=== PATIENT | female | born 1955 | race Caucasian/White ===

== ENCOUNTER 2016-10-05 04:44 | Inpatient (IN) | payer OTHER ==
[2016-10-05] VITALS (13 sets, daily range): BP systolic 97–148; BP diastolic 59–101
[~2016-10-05] VITALS: Ht 152.4 cm; Wt 87.2 kg
[~2016-10-05 04:44] MED LIST: ABILIFY2 MG PO; ABILIFY20 MG PO; ADULT LOW DOSE81 M1 PO; ADVAIR HFA120 INHAL1 IH; ALDACTONE25 MG PO; ALPRAZOLAM0.25 MG PO; COREG3.125 MG PO; COREG6.25 M1 PO; ENALAPRIL MALE2.5 MG PO; ENALAPRIL MALEAT5 M1 PO; FLONASE16 G1 BOTH NARES; FLOVENT DISKUS1 DIS2 IH; GLIPIZIDE5 M1 PO; GLIPIZIDE5 MG PO; GLUCOPHAGE850 MG PO; HYDROCODON-ACE1 EAC7 PO; ISOSORBIDE DINI20 MG PO; K-DUR20 MEQ PO; KLOR-CON 1010 MEQ PO; LASIX40 MG PO; LEVOFLOXACIN750 MG PO; LORATADINE10 M2 PO; METOLAZONE5 MG PO; OMEPRAZOLE40 M1 PO; PERCOCET 5/31 TABLET PO; PRAVASTATIN SOD20 MG PO; PREDNISONE10 M1 PO; PREDNISONE50 MG PO; PROAIR HFA8.5 GM IH; PROZAC40 MG PO; RELAFEN500 M1 PO; SERTRALINE HCL50 MG PO; SIMVASTATIN20 MG PO; SPIRONOLACTONE25 MG PO; [UNRECOGNIZED DRUG - OTHER]
[2016-10-05 05:17] LABS: BASE EXCESS -16.1 mEq/L (-3 to +3); BICARBONATE 12.3 mEq/L (22-26); CARBOXY HGB 3.8 % (0-5); COMMENTS - BLOOD GASES C+; DEVICE MASK VENT; FI02 50 %; METHEMOGLOBIN 0.5 % (0-1.5); MODE SPONT; PCO2 37 mm Hg (35-45); PO2 153 mm Hg (80-100); SITE RR; TOTAL RESP RATE 40 resp/min; pH 7.13 (7.35-7.45)
[2016-10-05 05:18] LABS: PEEP 5 CM/H20; PRES. SUPPORT 10 CM/H2O
[2016-10-05 05:27] LABS: CHLORIDE 109 mEq/L (99-109)
[2016-10-05 05:28] LABS: POTASSIUM 4.8 mEq/L (3.7-5.4); SODIUM 140 mEq/L (136-147)
[2016-10-05 05:31] LABS: ANION GAP 19 MEQ/L (2-14)
[2016-10-05 05:33] LABS: GFR ESTIMATE (CALCULATED) 48 mL/min/
[2016-10-05 05:34] LABS: UREA NITROGEN (BUN) 16 mg/dL (9-23)
[2016-10-05 05:40] LABS: HEMATOCRIT 44.7 % (36.0-46.0); MCH 34.6 PG (29.0-34.0); MCHC 31.5 G/DL (30.0-36.0); MCV 109.6 FL (83-99); MEAN PLAT.VOLUME 10.2 uM^3 (9.5-12.4); PLATELET COUNT 257 K/uL (156-360); RBC DIS.WIDTH-CV 13.1 % (11.8-14.6); RED BLOOD COUNT 4.08 M/uL (3.80-5.20); WHITE BLOOD COUNT 13.2 K/uL (4.1-10.2)
[2016-10-05 05:41] LABS: TROP-I INTERPRETATION NEGATIVE; TROPONIN-I 0.01 ng/mL (0.0-0.30)
[2016-10-05 05:54] LABS: GLUCOSE 471 mg/dL (70-99)
[2016-10-05 08:47] LABS: METH RESISTANT S AUREUS PCR NEGATIVE (NEGATIVE)
[2016-10-05 08:51] LABS: PROBE CHECK PASS; SPECIMEN PROCESSING CONTROL PASS
[2016-10-05 10:05] LABS: ADD MIUA? YES; BILIRUBIN NEGATIVE; BLOOD NEGATIVE; COLOR AMBER ((YELLOW)); GLUCOSE (STRIP) 150; KETONES NEGATIVE; LEUKOCYTES NEGATIVE; NITRITE NEGATIVE; PROTEIN (STRIP) 100; SPECIFIC GRAVITY 1.024 (1.000-1.030)
[2016-10-05 10:47] LABS: CASTS PRESENT /LPF
[2016-10-05 10:48] LABS: BACTERIA 2+ /HPF; EPITHELIAL CELLS 1+ /HPF; MUCUS NONE SEEN /LPF
[2016-10-05 12:22] LABS: POINT-OF-CARE METER ID UU14100415
[2016-10-05] MEDS ORDERED: K-DUR20 MEQ PO (13:33)
[2016-10-05] MEDS ORDERED: XARELTO20 MG PO (13:34)
[2016-10-05 13:42] LABS: POINT-OF-CARE METER ID UU13113731
[2016-10-05 14:33] LABS: POINT-OF-CARE METER ID UU13113731
[2016-10-05 15:33] LABS: ANION GAP 9 MEQ/L (2-14); CHLORIDE 111 MEQ/L (99-109); POTASSIUM 4.8 MEQ/L (3.7-5.4); SAMPLE HEMOLYSIS CHECK 0; SAMPLE ICTERIC CHECK 0; SAMPLE LIPEMIA CHECK 0; SODIUM 138 MEQ/L (136-147)
[2016-10-05 15:39] LABS: GFR ESTIMATE (CALCULATED) > 59 mL/min/; UREA NITROGEN (BUN) 18 mg/dL (9-23)
[2016-10-05 15:41] LABS: GLUCOSE 172 mg/dL (70-99)
[2016-10-05 15:44] LABS: TROP-I INTERPRETATION INDETERMINATE; TROPONIN-I 0.34 ng/mL (0.0-0.30)
[2016-10-05 16:36] LABS: POINT-OF-CARE METER ID UU13113731
[2016-10-05 18:41] LABS: POINT-OF-CARE METER ID UU13113731
[2016-10-05 18:44] LABS: BASE EXCESS -4.8 mEq/L (-3 to +3); CARBOXY HGB 2.2 % (0-5); PCO2 34 mm Hg (35-45)
[2016-10-05 18:45] LABS: BICARBONATE 19.7 mEq/L (22-26); COMMENTS - BLOOD GASES C+A+; DEVICE NC; O2 FLOW 1.5 L/MIN; PO2 70 mm Hg (80-100); SITE RR; pH 7.37 (7.35-7.45)
[2016-10-05 20:41] LABS: ANION GAP 9 MEQ/L (2-14); CHLORIDE 109 MEQ/L (99-109); POTASSIUM 5.2 MEQ/L (3.7-5.4); SAMPLE HEMOLYSIS CHECK 0; SAMPLE ICTERIC CHECK 0; SAMPLE LIPEMIA CHECK 0; SODIUM 136 MEQ/L (136-147)
[2016-10-05 20:47] LABS: GFR ESTIMATE (CALCULATED) > 59 mL/min/; GLUCOSE 145 mg/dL (70-99); UREA NITROGEN (BUN) 16 mg/dL (9-23)
[2016-10-05 20:52] LABS: TROP-I INTERPRETATION INDETERMINATE; TROPONIN-I 0.37 ng/mL (0.0-0.30)
[2016-10-05 22:59] LABS: POINT-OF-CARE METER ID UU13113731
[2016-10-06 02:37] LABS: POINT-OF-CARE METER ID UU13113748
[2016-10-06 05:41] LABS: POINT-OF-CARE METER ID UU13113748
[2016-10-06 08:00] VITALS: BP 123/69
[2016-10-06 09:38] LABS: ANION GAP 9 MEQ/L (2-14); CHLORIDE 104 MEQ/L (99-109); POTASSIUM 4.3 MEQ/L (3.7-5.4); SAMPLE HEMOLYSIS CHECK 0; SAMPLE ICTERIC CHECK 0; SAMPLE LIPEMIA CHECK 0; SODIUM 137 MEQ/L (136-147)
[2016-10-06 09:43] LABS: GFR ESTIMATE (CALCULATED) > 59 mL/min/; GLUCOSE 117 mg/dL (70-99); UREA NITROGEN (BUN) 12 mg/dL (9-23)
[2016-10-06 09:44] LABS: HEMATOCRIT 39.1 % (36.0-46.0); MCH 35.2 PG (29.0-34.0); MCHC 33.5 G/DL (30.0-36.0); RBC DIS.WIDTH-CV 13.2 % (11.8-14.6); RBC DIS.WIDTH-SD 51.2 % (39-53); RED BLOOD COUNT 3.72 M/uL (3.80-5.20); WHITE BLOOD COUNT 12.2 K/uL (4.1-10.2)
[2016-10-06 09:50] LABS: MCV 105.1 FL (83-99)
[2016-10-06 09:52] LABS: EOSINOPHIL (%) 0 % (0-5); IMMATURE GRANULOCYTE (%) 1.1 % (0.0-0.7); IMMATURE GRANULOCYTE COUNT 0.1 K/uL; INSTRUMENT ABS NEUTROPHIL CT 10.4 K/uL; LYMPHOCYTE COUNT 1.1 K/uL (1.0-2.8); MONOCYTE (%) 4.8 % (3-12); MONOCYTE COUNT 0.6 K/uL (0-0.8); NEUTROPHIL COUNT 10.4 K/uL (1.8-6.4); PLAT.SUFFICIENCY ADEQUATE; PLATELET COUNT UNABLE TO REPORT K/uL (156-360)
[2016-10-06 12:00] VITALS: BP 119/59
[2016-10-06 12:46] LABS: POINT-OF-CARE METER ID UU14208751
[2016-10-06 14:47] LABS: Estimated Average Glucose 126 mg/dL (70-123)
[2016-10-06 15:39] VITALS: BP 111/67
[2016-10-06 16:43] LABS: POINT-OF-CARE METER ID UU14174225
[2016-10-06 19:40] VITALS: BP 110/68
[2016-10-06 21:12] LABS: POINT-OF-CARE METER ID UU14188625
[2016-10-06 23:41] VITALS: BP 123/60
[2016-10-07] VITALS (7 sets, daily range): BP systolic 102–136; BP diastolic 64–81
[2016-10-07 06:44] LABS: HEMATOCRIT 37.3 % (36.0-46.0); MCH 35.9 PG (29.0-34.0); MCHC 34.3 G/DL (30.0-36.0); MCV 104.5 FL (83-99); MEAN PLAT.VOLUME 10.2 uM^3 (9.5-12.4); RBC DIS.WIDTH-CV 13.5 % (11.8-14.6); RBC DIS.WIDTH-SD 51.3 % (39-53); RED BLOOD COUNT 3.57 M/uL (3.80-5.20)
[2016-10-07 06:47] LABS: PLATELET COUNT 147 K/uL (156-360)
[2016-10-07 07:09] LABS: ANION GAP 8 MEQ/L (2-14); CHLORIDE 101 MEQ/L (99-109); GFR ESTIMATE (CALCULATED) > 59 mL/min/; GLUCOSE 96 mg/dL (70-99); SAMPLE HEMOLYSIS CHECK 0; SAMPLE ICTERIC CHECK 0; SAMPLE LIPEMIA CHECK 0; SODIUM 136 MEQ/L (136-147); UREA NITROGEN (BUN) 12 mg/dL (9-23)
[2016-10-07 08:29] LABS: POINT-OF-CARE METER ID UU14188625
[2016-10-07 11:56] LABS: POINT-OF-CARE METER ID UU14174225
[2016-10-07 13:53] LABS: HEMATOCRIT 42.2 % (36.0-46.0); MCH 34.6 PG (29.0-34.0); MCHC 33.6 G/DL (30.0-36.0); MCV 102.9 FL (83-99); MEAN PLAT.VOLUME 9.9 uM^3 (9.5-12.4); RBC DIS.WIDTH-CV 13.5 % (11.8-14.6); RBC DIS.WIDTH-SD 50.9 % (39-53); WHITE BLOOD COUNT 15.3 K/uL (4.1-10.2)
[2016-10-07 13:54] LABS: PLATELET COUNT 194 K/uL (156-360)
[2016-10-07 14:05] LABS: ANION GAP 9 MEQ/L (2-14); CHLORIDE 99 MEQ/L (99-109); GFR ESTIMATE (CALCULATED) > 59 mL/min/; GLUCOSE 101 mg/dL (70-99); POTASSIUM 3.9 MEQ/L (3.7-5.4); SAMPLE HEMOLYSIS CHECK 0; SAMPLE ICTERIC CHECK 0; SAMPLE LIPEMIA CHECK 0; SODIUM 135 MEQ/L (136-147); UREA NITROGEN (BUN) 12 mg/dL (9-23)
[2016-10-07 14:09] LABS: TROP-I INTERPRETATION NEGATIVE; TROPONIN-I 0.12 ng/mL (0.0-0.30)
[2016-10-07 15:01] LABS: MAGNESIUM 1.8 mg/dl (1.3-2.7)
[2016-10-07 21:23] LABS: POINT-OF-CARE USER ID ENVMNS
[2016-10-08 04:00] VITALS: BP 113/74
[2016-10-08 04:30] LABS: HEMATOCRIT 37.6 % (36.0-46.0); MCH 34.7 PG (29.0-34.0); MCV 101.9 FL (83-99); MEAN PLAT.VOLUME 10.1 uM^3 (9.5-12.4); PLATELET COUNT 179 K/uL (156-360); RBC DIS.WIDTH-CV 13.4 % (11.8-14.6); RBC DIS.WIDTH-SD 50.4 % (39-53); RED BLOOD COUNT 3.69 M/uL (3.80-5.20); WHITE BLOOD COUNT 15.7 K/uL (4.1-10.2)
[2016-10-08 04:45] LABS: POTASSIUM 3.8 mEq/L (3.7-5.4); SODIUM 133 mEq/L (136-147)
[2016-10-08 04:46] LABS: MAGNESIUM 1.7 mg/dL (1.3-2.7)
[2016-10-08 04:47] LABS: GLUCOSE 125 mg/dL (70-99)
[2016-10-08 04:49] LABS: ANION GAP 13 MEQ/L (2-14)
[2016-10-08 04:50] LABS: CHLORIDE 95 mEq/L (99-109)
[2016-10-08 04:51] LABS: GFR ESTIMATE (CALCULATED) > 59 mL/min/
[2016-10-08 04:52] LABS: TROP-I INTERPRETATION NEGATIVE; TROPONIN-I 0.12 ng/mL (0.0-0.30); UREA NITROGEN (BUN) 12 mg/dL (9-23)
[2016-10-08 07:30] VITALS: BP 119/62
[2016-10-08 07:39] LABS: POINT-OF-CARE METER ID UU13113698
[2016-10-08 11:22] LABS: POINT-OF-CARE METER ID UU13113698
[2016-10-08 12:12] VITALS: BP 104/71
[2016-10-08 16:28] LABS: POINT-OF-CARE METER ID UU14174216
[2016-10-08 17:38] VITALS: BP 104/71
[2016-10-08 19:33] VITALS: BP 129/64
[2016-10-08 21:33] LABS: POINT-OF-CARE METER ID UU14174216
[2016-10-08 23:03] VITALS: BP 103/58
[2016-10-09 03:30] VITALS: BP 100/59
[2016-10-09 05:46] LABS: HEMATOCRIT 35.2 % (36.0-46.0); MCH 36.4 PG (29.0-34.0); MCHC 35.5 G/DL (30.0-36.0); MCV 102.6 FL (83-99); MEAN PLAT.VOLUME 10.6 uM^3 (9.5-12.4); PLATELET COUNT 167 K/uL (156-360); RBC DIS.WIDTH-CV 13.2 % (11.8-14.6); RBC DIS.WIDTH-SD 49.6 % (39-53); RED BLOOD COUNT 3.43 M/uL (3.80-5.20); WHITE BLOOD COUNT 14.9 K/uL (4.1-10.2)
[2016-10-09 06:23] LABS: ANION GAP 10 MEQ/L (2-14); CHLORIDE 96 MEQ/L (99-109); GFR ESTIMATE (CALCULATED) > 59 mL/min/; GLUCOSE 173 mg/dL (70-99); POTASSIUM 3.4 MEQ/L (3.7-5.4); SAMPLE HEMOLYSIS CHECK 0; SAMPLE ICTERIC CHECK 0; SAMPLE LIPEMIA CHECK 0; SODIUM 136 MEQ/L (136-147); UREA NITROGEN (BUN) 19 mg/dL (9-23)
[2016-10-09 06:39] LABS: MAGNESIUM 2.1 mg/dl (1.3-2.7)
[2016-10-09 07:28] VITALS: BP 117/73
[2016-10-09 08:07] LABS: POINT-OF-CARE METER ID UU13113781
[2016-10-09 12:12] LABS: POINT-OF-CARE METER ID UU13113781
[2016-10-09 12:19] VITALS: BP 93/52
[2016-10-09 16:47] LABS: POINT-OF-CARE METER ID UU13113781
[2016-10-09 19:28] VITALS: BP 106/57
[2016-10-09 22:57] VITALS: BP 95/53
[2016-10-10 03:41] VITALS: BP 110/58
[2016-10-10 05:01] LABS: MCH 34.6 PG (29.0-34.0); MCHC 33.8 G/DL (30.0-36.0); MCV 102.5 FL (83-99); MEAN PLAT.VOLUME 10.3 uM^3 (9.5-12.4); PLATELET COUNT 210 K/uL (156-360); RBC DIS.WIDTH-CV 13.2 % (11.8-14.6); RBC DIS.WIDTH-SD 49.5 % (39-53); RED BLOOD COUNT 3.61 M/uL (3.80-5.20); WHITE BLOOD COUNT 17.4 K/uL (4.1-10.2)
[2016-10-10 05:22] LABS: CHLORIDE 99 mEq/L (99-109); POTASSIUM 3.5 mEq/L (3.7-5.4); SODIUM 141 mEq/L (136-147)
[2016-10-10 05:23] LABS: GLUCOSE 180 mg/dL (70-99)
[2016-10-10 05:25] LABS: ANION GAP 9 MEQ/L (2-14)
[2016-10-10 05:27] LABS: GFR ESTIMATE (CALCULATED) > 59 mL/min/
[2016-10-10 05:45] LABS: UREA NITROGEN (BUN) 34 mg/dL (9-23)
[2016-10-10 07:50] VITALS: BP 121/75
[2016-10-10 07:51] LABS: POINT-OF-CARE METER ID UU13113698
[2016-10-10 10:46] LABS: POINT-OF-CARE METER ID UU13113698
[2016-10-10 11:46] VITALS: BP 104/60
[2016-10-10 16:50] VITALS: BP 112/72
[2016-10-10 19:58] VITALS: BP 121/61
[2016-10-10 21:11] LABS: POINT-OF-CARE METER ID UU13113781
[2016-10-10 23:55] VITALS: BP 122/65
[2016-10-11 02:57] VITALS: BP 105/63
[2016-10-11 05:41] LABS: HEMATOCRIT 37.7 % (36.0-46.0); MCH 35.4 PG (29.0-34.0); MCHC 33.7 G/DL (30.0-36.0); MEAN PLAT.VOLUME 10.4 uM^3 (9.5-12.4); PLATELET COUNT 236 K/uL (156-360); RBC DIS.WIDTH-CV 13.4 % (11.8-14.6); RBC DIS.WIDTH-SD 50.8 % (39-53); RED BLOOD COUNT 3.59 M/uL (3.80-5.20); WHITE BLOOD COUNT 12.9 K/uL (4.1-10.2)
[2016-10-11 06:40] LABS: ANION GAP 10 MEQ/L (2-14); CHLORIDE 99 MEQ/L (99-109); GFR ESTIMATE (CALCULATED) > 59 mL/min/; GLUCOSE 176 mg/dL (70-99); POTASSIUM 4.1 MEQ/L (3.7-5.4); SAMPLE HEMOLYSIS CHECK 0; SAMPLE ICTERIC CHECK 0; SAMPLE LIPEMIA CHECK 0; SODIUM 140 MEQ/L (136-147); UREA NITROGEN (BUN) 33 mg/dL (9-23)
[2016-10-11 07:51] LABS: POINT-OF-CARE METER ID UU13113781
[2016-10-11 08:00] VITALS: BP 125/74
[2016-10-11 11:23] LABS: POINT-OF-CARE METER ID UU13113781
[2016-10-11 11:40] VITALS: BP 125/64
[2016-10-11 17:31] VITALS: BP 123/63
[2016-10-11 19:20] VITALS: BP 116/81
[2016-10-11 20:42] LABS: POINT-OF-CARE METER ID UU13113803
[2016-10-11 23:51] VITALS: BP 116/61
[2016-10-12 05:20] VITALS: BP 119/67
[2016-10-12 07:42] VITALS: BP 127/67
[2016-10-12 08:28] LABS: POINT-OF-CARE METER ID UU13113803
[2016-10-12 11:01] LABS: POINT-OF-CARE METER ID UU13113698
[2016-10-12 11:48] VITALS: BP 122/61
[2016-10-12 16:00] VITALS: BP 121/74
[2016-10-12 16:04] LABS: POINT-OF-CARE METER ID UU13113698
[2016-10-12 19:47] VITALS: BP 120/65
[2016-10-12 23:36] VITALS: BP 112/58
[2016-10-13 04:33] VITALS: BP 118/59
[2016-10-13 07:37] LABS: POINT-OF-CARE METER ID UU13113803
[2016-10-13 07:40] VITALS: BP 119/74
[2016-10-13 09:42] LABS: EOSINOPHIL (%) 0.4 % (0-5); EOSINOPHIL COUNT 0.1 K/uL (0-0.3); HEMATOCRIT 43.4 % (36.0-46.0); IMMATURE GRANULOCYTE (%) 1.2 % (0.0-0.7); IMMATURE GRANULOCYTE COUNT 0.2 K/uL; INSTRUMENT ABS NEUTROPHIL CT 12.4 K/uL; MCH 34.2 PG (29.0-34.0); MCHC 33.2 G/DL (30.0-36.0); MCV 103.1 FL (83-99); MEAN PLAT.VOLUME 9.8 uM^3 (9.5-12.4); MONOCYTE (%) 5.3 % (3-12); MONOCYTE COUNT 0.8 K/uL (0-0.8); NEUTROPHIL (%) 80.2 % (45-76); NEUTROPHIL COUNT 12.4 K/uL (1.8-6.4); RBC DIS.WIDTH-CV 13.1 % (11.8-14.6); RBC DIS.WIDTH-SD 49.2 % (39-53); RED BLOOD COUNT 4.21 M/uL (3.80-5.20); WHITE BLOOD COUNT 15.4 K/uL (4.1-10.2)
[2016-10-13 09:44] LABS: PLATELET COUNT 312 K/uL (156-360)
[2016-10-13 10:01] LABS: ANION GAP 8 MEQ/L (2-14); CHLORIDE 98 MEQ/L (99-109); GFR ESTIMATE (CALCULATED) > 59 mL/min/; GLUCOSE 73 mg/dL (70-99); POTASSIUM 4.4 MEQ/L (3.7-5.4); SAMPLE HEMOLYSIS CHECK 0; SAMPLE ICTERIC CHECK 0; SAMPLE LIPEMIA CHECK 0; SODIUM 139 MEQ/L (136-147); UREA NITROGEN (BUN) 34 mg/dL (9-23)
[2016-10-13 11:25] LABS: POINT-OF-CARE METER ID UU13113803
[2016-10-13 11:42] VITALS: BP 103/56
[2016-10-13 16:24] LABS: POINT-OF-CARE METER ID UU13113803
[2016-10-13 21:00] VITALS: BP 111/69
[2016-10-13 22:06] LABS: POINT-OF-CARE METER ID UU13113698
[2016-10-13 22:34] LABS: POINT-OF-CARE METER ID UU13113698
[2016-10-14] VITALS: BP 110/64
[2016-10-14 04:00] VITALS: BP 116/62
[2016-10-14 07:49] LABS: POINT-OF-CARE METER ID UU13113698
[2016-10-14 09:00] VITALS: BP 117/65
[2016-10-14 11:04] LABS: POINT-OF-CARE METER ID UU13113698
[2016-10-14] MEDS ORDERED: BENZONATATE100 MG PO (12:04)
[2016-10-14] MEDS ORDERED: PREDNISONE5 MG PO (12:07)
== END 2016-10-14 15:38 | disposition home health service (06) | DRG 637 ==
LOC: EME → EDBD 04:44 → EME 04:44 → EDOF 06:48 → 4WEST 06:48 → 5SOUTH 06:48 → ENRESERV 06:49 → 4WEST 07:18 → ENRESERV 10-06 08:52 → 4WEST 10-06 10:19 → ENRESERV 10-06 14:15 → 5SOUTH 10-06 15:17 → ENRESERV 10-07 13:46 → 4EAST 10-07 14:18
PROVIDERS: Emergency Medicine; Internal Medicine; Internal Medicine Critical Care Medicine; Surgery
DX: E13.10 Other specified diabetes mellitus with ketoacidosis without coma (principal); J96.01 Acute respiratory failure with hypoxia; I50.23 Acute on chronic systolic (congestive) heart failure; J44.0 Chronic obstructive pulmonary disease with (acute) lower respiratory infection; J18.9 Pneumonia, unspecified organism; J44.1 Chronic obstructive pulmonary disease with (acute) exacerbation; I48.91 Unspecified atrial fibrillation; I11.0 Hypertensive heart disease with heart failure; N39.0 Urinary tract infection, site not specified; I25.118 Atherosclerotic heart disease of native coronary artery with other forms of angina pectoris; K21.9 Gastro-esophageal reflux disease without esophagitis; F17.200 Nicotine dependence, unspecified, uncomplicated; I25.5 Ischemic cardiomyopathy; K57.30 Diverticulosis of large intestine without perforation or abscess without bleeding; E78.5 Hyperlipidemia, unspecified; E66.9 Obesity, unspecified; I42.0 Dilated cardiomyopathy; I27.2 Other secondary pulmonary hypertension; Z95.5 Presence of coronary angioplasty implant and graft; Z95.810 Presence of automatic (implantable) cardiac defibrillator; Z68.41 Body mass index [BMI] 40.0-44.9, adult; Z95.1 Presence of aortocoronary bypass graft; Z86.73 Personal history of transient ischemic attack (TIA), and cerebral infarction without residual deficits; I25.2 Old myocardial infarction; Z79.82 Long term (current) use of aspirin
CPT/HCPCS: 36600; 71010; 71020; 71250; 74176; 80048; 80048 91; 81003; 82010; 82803; 82948; 83036; 83605; 83735; 83880; 84484; 85025; 85027; 87040; 87086; 87449; 87641; 93005; 93306; 94002; 94010; 94640; 94640 76; 94667; 94668; 94760; 94799; 97530 GO; 97530 GP; 99202; 99281; 99285; J0171; J0692; J0696; J1100; J1815; J1940; J2405; J2543; J2930; J7030; J7050; J7120; J7512; J7644

== ENCOUNTER 2017-04-25 20:40 | Emergency (ER) | payer OTHER ==
[~2017-04-25] VITALS: Ht 152.4 cm; Wt 96.6 kg
[~2017-04-25 20:40] MED LIST changes: +BENZONATATE100 MG PO; +PREDNISONE5 MG PO; +XARELTO20 MG PO
[2017-04-25 21:10] LABS: HEMATOCRIT 41.1 % (36.0-46.0); HEMOGLOBIN 14.1 G/DL (11.9-15.5); MCH 34.6 PG (29.0-34.0); MCHC 34.3 G/DL (30.0-36.0); PLATELET COUNT 260 K/uL (156-360); RBC DIS.WIDTH-CV 13.2 % (11.8-14.6); RBC DIS.WIDTH-SD 49.3 % (39-53); RED BLOOD COUNT 4.07 M/uL (3.80-5.20); WHITE BLOOD COUNT 11.3 K/uL (4.1-10.2)
[2017-04-25 21:21] LABS: CHLORIDE 104 mEq/L (99-109); SODIUM 139 mEq/L (136-147)
[2017-04-25 21:23] LABS: GLUCOSE 153 mg/dL (70-99)
[2017-04-25 21:27] LABS: GFR ESTIMATE (CALCULATED) > 59 mL/min/
[2017-04-25 21:28] LABS: UREA NITROGEN (BUN) 20 mg/dL (9-23)
[2017-04-25 21:32] LABS: TROP-I INTERPRETATION NEGATIVE; TROPONIN-I 0.01 ng/mL (0.0-0.30)
[2017-04-25 23:55] VITALS: BP 109/65
== END 2017-04-25 23:57 | disposition home or self-care (01) ==
LOC: EME → EDBD 20:40 → EME 20:40
PROVIDERS: Emergency Medicine
DX: R07.9 Chest pain, unspecified (principal); I48.91 Unspecified atrial fibrillation; B34.9 Viral infection, unspecified; F17.200 Nicotine dependence, unspecified, uncomplicated; E11.9 Type 2 diabetes mellitus without complications; Z79.84 Long term (current) use of oral hypoglycemic drugs; E78.5 Hyperlipidemia, unspecified; I25.2 Old myocardial infarction; Z86.73 Personal history of transient ischemic attack (TIA), and cerebral infarction without residual deficits; Z95.5 Presence of coronary angioplasty implant and graft; Z95.1 Presence of aortocoronary bypass graft; J44.9 Chronic obstructive pulmonary disease, unspecified; F32.9 Major depressive disorder, single episode, unspecified; F41.9 Anxiety disorder, unspecified; K21.9 Gastro-esophageal reflux disease without esophagitis
CPT/HCPCS: 71046; 80048; 84484; 85027; 87502; 93005; 99281; 99285; J2405; J7030

== ENCOUNTER 2017-07-12 13:28 | Emergency (ER) | payer OTHER ==
[~2017-07-12] VITALS: Ht 154.9 cm; Wt 96.7 kg
[2017-07-12 14:53] LABS: HEMATOCRIT 40.7 % (36.0-46.0); HEMOGLOBIN 13.9 G/DL (11.9-15.5); MCH 34.8 PG (29.0-34.0); MCHC 34.2 G/DL (30.0-36.0); MCV 101.8 FL (83-99); PLATELET COUNT 226 K/uL (156-360); RBC DIS.WIDTH-SD 49.2 % (39-53)
[2017-07-12 15:04] LABS: CHLORIDE 99 mEq/L (99-109); SODIUM 136 mEq/L (136-147)
[2017-07-12 15:06] LABS: GLUCOSE 94 mg/dL (70-99)
[2017-07-12 15:10] LABS: GFR ESTIMATE (CALCULATED) > 59 mL/min/
[2017-07-12 15:11] LABS: UREA NITROGEN (BUN) 25 mg/dL (9-23)
[2017-07-12 15:14] LABS: TROP-I INTERPRETATION NEGATIVE; TROPONIN-I 0.02 ng/mL (0.0-0.30)
[2017-07-12] MEDS ORDERED: LEVAQUIN750 MG PO (16:33)
[2017-07-12 16:55] VITALS: BP 129/65
[2017-07-16] MEDS ORDERED: PRILOSEC20 MG PO (20:45)
== END 2017-07-12 16:56 | disposition home or self-care (01) ==
LOC: EME 13:28
PROVIDERS: Emergency Medicine Emergency Medical Services
DX: J18.9 Pneumonia, unspecified organism (principal); J44.0 Chronic obstructive pulmonary disease with (acute) lower respiratory infection; J44.1 Chronic obstructive pulmonary disease with (acute) exacerbation; R07.9 Chest pain, unspecified; I50.9 Heart failure, unspecified; E11.9 Type 2 diabetes mellitus without complications; Z79.84 Long term (current) use of oral hypoglycemic drugs; I25.2 Old myocardial infarction; I25.10 Atherosclerotic heart disease of native coronary artery without angina pectoris; E78.5 Hyperlipidemia, unspecified; F17.200 Nicotine dependence, unspecified, uncomplicated; K21.9 Gastro-esophageal reflux disease without esophagitis; Z86.73 Personal history of transient ischemic attack (TIA), and cerebral infarction without residual deficits; F32.9 Major depressive disorder, single episode, unspecified; Z95.1 Presence of aortocoronary bypass graft; Z95.5 Presence of coronary angioplasty implant and graft; Z88.6 Allergy status to analgesic agent; F41.9 Anxiety disorder, unspecified
CPT/HCPCS: 71046; 80048; 83880; 84484; 85027; 93005; 94640; 99281; 99285

== ENCOUNTER 2017-07-16 17:44 | Inpatient (IN) | payer OTHER ==
[~2017-07-16] VITALS: Ht 152.4 cm; Wt 97.0 kg
[~2017-07-16 17:44] MED LIST changes: +LEVAQUIN750 MG PO
[2017-07-16 18:43] LABS: ALBUMIN 4.6 g/dL (3.2-4.8); CHLORIDE 97 mEq/L (99-109); POTASSIUM 4.5 mEq/L (3.7-5.4); SODIUM 138 mEq/L (136-147)
[2017-07-16 18:44] LABS: MAGNESIUM 2.7 mg/dL (1.3-2.7)
[2017-07-16 18:45] LABS: GLUCOSE 217 mg/dL (70-99)
[2017-07-16 18:47] LABS: TOTAL BILIRUBIN 0.4 mg/dL (0.0-1.0)
[2017-07-16 18:49] LABS: ALKALINE PHOSPHATASE 118 IU/L (3-129); GFR ESTIMATE (CALCULATED) 35 mL/min/
[2017-07-16 18:50] LABS: UREA NITROGEN (BUN) 22 mg/dL (9-23)
[2017-07-16 18:51] LABS: AST (GOT) 22 IU/L (2-34)
[2017-07-16 18:52] LABS: ALT (GPT) 17 IU/L (3-49)
[2017-07-16 18:55] LABS: BASOPHIL (%) 0.8 % (0-1); BASOPHIL COUNT 0.2 K/uL (0-0.1); CREATININE 1.6 mg/dL (0.6-1.3); EOSINOPHIL (%) 0.1 % (0-5); HEMATOCRIT 53.8 % (36.0-46.0); IMMATURE GRANULOCYTE (%) 3.4 % (0.0-0.7); LYMPHOCYTE (%) 35.2 % (15-42); LYMPHOCYTE COUNT 6.8 K/uL (1.0-2.8); MCH 34.8 PG (29.0-34.0); MCHC 33.1 G/DL (30.0-36.0); MCV 105.3 FL (83-99); MONOCYTE (%) 5.5 % (3-12); MONOCYTE COUNT 1.1 K/uL (0-0.8); NEUTROPHIL COUNT 10.6 K/uL (1.8-6.4); RBC DIS.WIDTH-CV 12.9 % (11.8-14.6); RBC DIS.WIDTH-SD 50.6 % (39-53); TROP-I INTERPRETATION NEGATIVE; TROPONIN-I 0.02 ng/mL (0.0-0.30); WHITE BLOOD COUNT 19.3 K/uL (4.1-10.2)
[2017-07-16 18:57] LABS: HEMOGLOBIN 17.8 G/DL (11.9-15.5); PLATELET COUNT 356 K/uL (156-360); RED BLOOD COUNT 5.11 M/uL (3.80-5.20)
[2017-07-16 19:06] LABS: APPEARANCE CLEAR ((CLEAR)); BILIRUBIN NEGATIVE; BLOOD SMALL; COLOR YELLOW ((YELLOW)); GLUCOSE (STRIP) NEGATIVE; KETONES NEGATIVE; LEUKOCYTES NEGATIVE; NITRITE NEGATIVE; PROTEIN (STRIP) NEGATIVE; SPECIFIC GRAVITY 1.012 (1.000-1.030)
[2017-07-16 19:16] LABS: BACTERIA NONE SEEN /HPF; EPITHELIAL CELLS 1+ /HPF; HYALINE CASTS 0-5 /LPF; MUCUS NONE SEEN /LPF; UCUL ADDED? NO; WHITE BLOOD CELLS 0-5 /HPF (0-5)
[2017-07-16 19:55] LABS: INTER. NORMALIZED RATIO 2.2
[2017-07-16 19:58] LABS: PTT 34.7 SEC (25-37)
[2017-07-16 20:00] VITALS: BP 132/81
[2017-07-16] MEDS ORDERED: LASIX40 MG PO (20:38)
[2017-07-16] MEDS ORDERED: ALDACTONE25 MG PO (20:38)
[2017-07-16] MEDS ORDERED: PROZAC40 MG PO (20:39)
[2017-07-16] MEDS ORDERED: XARELTO20 MG PO (20:39)
[2017-07-16] MEDS ORDERED: K-DUR20 MEQ PO (20:40)
[2017-07-16] MEDS ORDERED: ABILIFY5 MG PO (20:41)
[2017-07-16] MEDS ORDERED: RANEXA500 MG PO (20:41)
[2017-07-16] MEDS ORDERED: COREG6.25 M1 PO (20:42)
[2017-07-16] MEDS ORDERED: ZOCOR20 MG PO (20:42)
[2017-07-16] MEDS ORDERED: ASPIRIN81 M2 PO (20:43)
[2017-07-16] MEDS ORDERED: OMEPRAZOLE40 M1 PO (20:45)
[2017-07-16] MEDS ORDERED: SPIRIVA RESPIMAT4 GM IH (20:45)
[2017-07-16] MEDS ORDERED: VASOTEC2.5 MG PO (20:46)
[2017-07-16] MEDS ORDERED: ADVIL MIGRAINE200 MG PO (20:47)
[2017-07-16 20:48] LABS: BASE EXCESS -1.8 mEq/L (-3 to +3); BICARBONATE 24.3 mEq/L (22-26); CARBOXY HGB 2.6 % (0-5); COMMENTS - BLOOD GASES C+; DEVICE VENT; FI02 100 %; INSPIRATION TIME 0.9 seconds; MECHANICAL RATE 20 resp/min; METHEMOGLOBIN 1.3 % (0-1.5); MODE ACVC+; PCO2 45 mm Hg (35-45); PO2 228 mm Hg (80-100); SITE RR; TOTAL RESP RATE 20 resp/min; pH 7.34 (7.35-7.45)
[2017-07-16 20:49] LABS: PEEP 8 CM/H20; TIDAL VOLUME 450 ML
[2017-07-16] MEDS ORDERED: METOLAZONE5 MG PO (20:50)
[2017-07-16] MEDS ORDERED: ISOSORBIDE DINI20 MG PO (20:51)
[2017-07-16 21:00] VITALS: BP 93/69
[2017-07-16 22:00] VITALS: BP 97/68
[2017-07-16 23:00] VITALS: BP 105/68
[2017-07-16 23:04] LABS: CHLORIDE 99 mEq/L (99-109); POTASSIUM 4.1 mEq/L (3.7-5.4); SODIUM 137 mEq/L (136-147)
[2017-07-16 23:06] LABS: GLUCOSE 219 mg/dL (70-99)
[2017-07-16 23:10] LABS: CREATININE 1.4 mg/dL (0.6-1.3); GFR ESTIMATE (CALCULATED) 40 mL/min/
[2017-07-16 23:11] LABS: UREA NITROGEN (BUN) 27 mg/dL (9-23)
[2017-07-16 23:17] LABS: TROP-I INTERPRETATION POSITIVE; TROPONIN-I 3.05 ng/mL (0.0-0.30)
[2017-07-17] VITALS (24 sets, daily range): BP systolic 88–118; BP diastolic 43–69
[2017-07-17 06:18] LABS: TROP-I INTERPRETATION POSITIVE; TROPONIN-I 4.61 ng/mL (0.0-0.30)
[2017-07-17 06:22] LABS: BASOPHIL (%) 0.5 % (0-1); BASOPHIL COUNT 0.1 K/uL (0-0.1); EOSINOPHIL (%) 0 % (0-5); HEMATOCRIT 39.8 % (36.0-46.0); LYMPHOCYTE (%) 10.8 % (15-42); LYMPHOCYTE COUNT 1.2 K/uL (1.0-2.8); MCH 33.4 PG (29.0-34.0); MCHC 32.7 G/DL (30.0-36.0); MCV 102.3 FL (83-99); MONOCYTE (%) 4.1 % (3-12); MONOCYTE COUNT 0.5 K/uL (0-0.8); NEUTROPHIL (%) 81.6 % (45-76); RBC DIS.WIDTH-SD 48.9 % (39-53)
[2017-07-17 06:25] LABS: RED BLOOD COUNT 3.89 M/uL (3.80-5.20)
[2017-07-17 06:45] LABS: PLAT.SUFFICIENCY ADEQUATE; PLATELET CLUMPS PRESENT - PLATELET COUNT APPEARS ADQ.; PLATELET COUNT UNABLE TO REPORT K/uL (156-360)
[2017-07-17 07:00] LABS: CHLORIDE 102 MEQ/L (99-109); CREATININE 1.1 MG/DL (0.6-1.3); GFR ESTIMATE (CALCULATED) 53 mL/min/; GLUCOSE 214 mg/dL (70-99); MAGNESIUM 1.9 mg/dl (1.3-2.7); PHOSPHORUS 3.9 mg/dL (2.5-4.9); POTASSIUM 3.9 MEQ/L (3.7-5.4); SODIUM 135 MEQ/L (136-147); UREA NITROGEN (BUN) 25 mg/dL (9-23)
[2017-07-17 13:00] LABS: TROPONIN-I 3.62 ng/mL (0.0-0.30)
[2017-07-17 13:01] LABS: TROP-I INTERPRETATION POSITIVE
[2017-07-18] VITALS (14 sets, daily range): BP systolic 92–113; BP diastolic 47–66
[2017-07-18 06:47] LABS: CHLORIDE 103 MEQ/L (99-109); CREATININE 1.1 MG/DL (0.6-1.3); GFR ESTIMATE (CALCULATED) 53 mL/min/; POTASSIUM 3.8 MEQ/L (3.7-5.4); SODIUM 137 MEQ/L (136-147); UREA NITROGEN (BUN) 25 mg/dL (9-23)
[2017-07-18 06:49] LABS: GLUCOSE 88 mg/dL (70-99)
[2017-07-19] VITALS (7 sets, daily range): BP systolic 102–135; BP diastolic 54–71
[2017-07-19 02:56] LABS: HEMATOCRIT 36.5 % (36.0-46.0); HEMOGLOBIN 12.5 G/DL (11.9-15.5); MCH 35.1 PG (29.0-34.0); MCHC 34.2 G/DL (30.0-36.0); MCV 102.5 FL (83-99); RBC DIS.WIDTH-CV 13.2 % (11.8-14.6); RED BLOOD COUNT 3.56 M/uL (3.80-5.20); WHITE BLOOD COUNT 9.5 K/uL (4.1-10.2)
[2017-07-19 02:59] LABS: PLATELET COUNT 180 K/uL (156-360)
[2017-07-19 22:18] LABS: ALBUMIN 3.7 G/DL (3.2-4.8); CHLORIDE 100 MEQ/L (99-109); SODIUM 133 MEQ/L (136-147); TOTAL BILIRUBIN 0.6 MG/DL (0.0-1.0)
[2017-07-19 22:24] LABS: ALKALINE PHOSPHATASE 69 IU/L (3-129); ALT (GPT) 12 IU/L (3-49); AST (GOT) 13 IU/L (2-34); CREATININE 0.9 MG/DL (0.6-1.3); GFR ESTIMATE (CALCULATED) > 59 mL/min/; GLUCOSE 149 mg/dL (70-99); UREA NITROGEN (BUN) 20 mg/dL (9-23)
[2017-07-20 03:04] VITALS: BP 136/67
[2017-07-20 05:42] LABS: BASOPHIL (%) 0.4 % (0-1); EOSINOPHIL (%) 0.4 % (0-5); HEMATOCRIT 37.9 % (36.0-46.0); HEMOGLOBIN 12.5 G/DL (11.9-15.5); IMMATURE GRANULOCYTE (%) 2.2 % (0.0-0.7); LYMPHOCYTE COUNT 0.8 K/uL (1.0-2.8); MCH 33.5 PG (29.0-34.0); MCV 101.6 FL (83-99); MONOCYTE (%) 3.9 % (3-12); MONOCYTE COUNT 0.4 K/uL (0-0.8); NEUTROPHIL (%) 85.1 % (45-76); NEUTROPHIL COUNT 8.7 K/uL (1.8-6.4); PLATELET COUNT 188 K/uL (156-360); RBC DIS.WIDTH-CV 12.7 % (11.8-14.6); RBC DIS.WIDTH-SD 47.8 % (39-53); RED BLOOD COUNT 3.73 M/uL (3.80-5.20); WHITE BLOOD COUNT 10.2 K/uL (4.1-10.2)
[2017-07-20 06:04] LABS: CHLORIDE 98 MEQ/L (99-109); CREATININE 0.7 MG/DL (0.6-1.3); GFR ESTIMATE (CALCULATED) > 59 mL/min/; GLUCOSE 150 mg/dL (70-99); POTASSIUM 4.1 MEQ/L (3.7-5.4); SODIUM 135 MEQ/L (136-147); UREA NITROGEN (BUN) 15 mg/dL (9-23)
[2017-07-20 08:43] VITALS: BP 109/64
[2017-07-20 11:33] VITALS: BP 117/89
[2017-07-20 16:15] VITALS: BP 106/71
[2017-07-20 19:30] VITALS: BP 92/54
[2017-07-21] VITALS (7 sets, daily range): BP systolic 94–141; BP diastolic 50–70
[2017-07-21 05:50] LABS: BASOPHIL (%) 0.5 % (0-1); BASOPHIL COUNT 0.1 K/uL (0-0.1); EOSINOPHIL (%) 2.4 % (0-5); EOSINOPHIL COUNT 0.2 K/uL (0-0.3); HEMATOCRIT 37.2 % (36.0-46.0); HEMOGLOBIN 12.3 G/DL (11.9-15.5); IMMATURE GRANULOCYTE (%) 1.5 % (0.0-0.7); LYMPHOCYTE (%) 17.7 % (15-42); LYMPHOCYTE COUNT 1.8 K/uL (1.0-2.8); MCH 34.1 PG (29.0-34.0); MCHC 33.1 G/DL (30.0-36.0); MONOCYTE (%) 7.3 % (3-12); MONOCYTE COUNT 0.7 K/uL (0-0.8); NEUTROPHIL (%) 70.6 % (45-76); NEUTROPHIL COUNT 7.1 K/uL (1.8-6.4); PLATELET COUNT 192 K/uL (156-360); RBC DIS.WIDTH-CV 13.2 % (11.8-14.6); RBC DIS.WIDTH-SD 50.4 % (39-53); RED BLOOD COUNT 3.61 M/uL (3.80-5.20)
[2017-07-21 06:15] LABS: CHLORIDE 98 MEQ/L (99-109); CREATININE 0.9 MG/DL (0.6-1.3); GFR ESTIMATE (CALCULATED) > 59 mL/min/; GLUCOSE 145 mg/dL (70-99); POTASSIUM 3.9 MEQ/L (3.7-5.4); SODIUM 134 MEQ/L (136-147); UREA NITROGEN (BUN) 16 mg/dL (9-23)
[2017-07-22 03:22] VITALS: BP 110/68
[2017-07-22 05:21] LABS: BASOPHIL (%) 0.5 % (0-1); BASOPHIL COUNT 0.1 K/uL (0-0.1); EOSINOPHIL (%) 3.2 % (0-5); EOSINOPHIL COUNT 0.4 K/uL (0-0.3); HEMATOCRIT 41.8 % (36.0-46.0); HEMOGLOBIN 13.7 G/DL (11.9-15.5); IMMATURE GRANULOCYTE (%) 1.8 % (0.0-0.7); LYMPHOCYTE (%) 15.1 % (15-42); LYMPHOCYTE COUNT 1.8 K/uL (1.0-2.8); MCH 33.5 PG (29.0-34.0); MCHC 32.8 G/DL (30.0-36.0); MCV 102.2 FL (83-99); MONOCYTE (%) 8.2 % (3-12); NEUTROPHIL (%) 71.2 % (45-76); NEUTROPHIL COUNT 8.4 K/uL (1.8-6.4); PLATELET COUNT 223 K/uL (156-360); RED BLOOD COUNT 4.09 M/uL (3.80-5.20); WHITE BLOOD COUNT 11.8 K/uL (4.1-10.2)
[2017-07-22 05:50] LABS: CHLORIDE 93 MEQ/L (99-109); CREATININE 1.1 MG/DL (0.6-1.3); GFR ESTIMATE (CALCULATED) 53 mL/min/; GLUCOSE 110 mg/dL (70-99); POTASSIUM 3.9 MEQ/L (3.7-5.4); SODIUM 134 MEQ/L (136-147); UREA NITROGEN (BUN) 20 mg/dL (9-23)
[2017-07-22 07:39] VITALS: BP 109/65
[2017-07-22 11:09] VITALS: BP 107/65
[2017-07-22 15:10] VITALS: BP 108/66
[2017-07-22 19:00] VITALS: BP 96/54
[2017-07-22 22:30] VITALS: BP 91/53
[2017-07-23 03:00] VITALS: BP 106/58
[2017-07-23 05:29] LABS: BASOPHIL (%) 0.8 % (0-1); BASOPHIL COUNT 0.1 K/uL (0-0.1); EOSINOPHIL (%) 2.6 % (0-5); EOSINOPHIL COUNT 0.3 K/uL (0-0.3); HEMATOCRIT 40.6 % (36.0-46.0); HEMOGLOBIN 13.3 G/DL (11.9-15.5); IMMATURE GRANULOCYTE (%) 1.9 % (0.0-0.7); LYMPHOCYTE (%) 14.9 % (15-42); LYMPHOCYTE COUNT 1.6 K/uL (1.0-2.8); MCH 33.2 PG (29.0-34.0); MCHC 32.8 G/DL (30.0-36.0); MCV 101.2 FL (83-99); MONOCYTE COUNT 0.7 K/uL (0-0.8); NEUTROPHIL (%) 72.8 % (45-76); NEUTROPHIL COUNT 7.7 K/uL (1.8-6.4); PLATELET COUNT 218 K/uL (156-360); RBC DIS.WIDTH-CV 12.9 % (11.8-14.6); RED BLOOD COUNT 4.01 M/uL (3.80-5.20); WHITE BLOOD COUNT 10.6 K/uL (4.1-10.2)
[2017-07-23 05:52] LABS: CHLORIDE 94 MEQ/L (99-109); CREATININE 1.2 MG/DL (0.6-1.3); GFR ESTIMATE (CALCULATED) 48 mL/min/; GLUCOSE 110 mg/dL (70-99); POTASSIUM 3.6 MEQ/L (3.7-5.4); SODIUM 132 MEQ/L (136-147); UREA NITROGEN (BUN) 26 mg/dL (9-23)
[2017-07-23 07:26] VITALS: BP 105/59
[2017-07-23 11:21] VITALS: BP 108/68
[2017-07-23 16:57] VITALS: BP 111/67
[2017-07-23 19:23] VITALS: BP 110/65
[2017-07-23 23:53] VITALS: BP 116/62
[2017-07-24 03:46] VITALS: BP 117/68
[2017-07-24 04:52] LABS: APPEARANCE CLEAR ((CLEAR)); BILIRUBIN NEGATIVE; BLOOD SMALL; COLOR YELLOW ((YELLOW)); GLUCOSE (STRIP) NEGATIVE; KETONES NEGATIVE; LEUKOCYTES NEGATIVE; NITRITE NEGATIVE; PROTEIN (STRIP) NEGATIVE; SPECIFIC GRAVITY 1.011 (1.000-1.030); UROBILINOGEN 0.2 MG/DL (0.2-1.0)
[2017-07-24 04:54] LABS: BACTERIA NONE SEEN /HPF; EPITHELIAL CELLS 1+ /HPF; MUCUS TRACE /LPF; RED BLOOD CELLS 0-5 /HPF (0-5); UCUL ADDED? NO; WHITE BLOOD CELLS 0-5 /HPF (0-5)
[2017-07-24 05:22] LABS: BASOPHIL (%) 0.7 % (0-1); BASOPHIL COUNT 0.1 K/uL (0-0.1); EOSINOPHIL (%) 2.6 % (0-5); EOSINOPHIL COUNT 0.2 K/uL (0-0.3); HEMATOCRIT 37.7 % (36.0-46.0); HEMOGLOBIN 12.6 G/DL (11.9-15.5); IMMATURE GRANULOCYTE (%) 1.9 % (0.0-0.7); LYMPHOCYTE (%) 18.6 % (15-42); LYMPHOCYTE COUNT 1.6 K/uL (1.0-2.8); MCH 34.4 PG (29.0-34.0); MCHC 33.4 G/DL (30.0-36.0); MONOCYTE (%) 7.2 % (3-12); MONOCYTE COUNT 0.6 K/uL (0-0.8); NEUTROPHIL COUNT 6.1 K/uL (1.8-6.4); PLATELET COUNT 228 K/uL (156-360); RBC DIS.WIDTH-CV 12.9 % (11.8-14.6); RBC DIS.WIDTH-SD 48.7 % (39-53); RED BLOOD COUNT 3.66 M/uL (3.80-5.20); WHITE BLOOD COUNT 8.8 K/uL (4.1-10.2)
[2017-07-24 05:46] LABS: CHLORIDE 97 MEQ/L (99-109); CREATININE 1.1 MG/DL (0.6-1.3); GFR ESTIMATE (CALCULATED) 53 mL/min/; GLUCOSE 161 mg/dL (70-99); POTASSIUM 3.4 MEQ/L (3.7-5.4); SODIUM 134 MEQ/L (136-147); UREA NITROGEN (BUN) 21 mg/dL (9-23)
[2017-07-24 07:22] VITALS: BP 116/87
[2017-07-24 11:33] VITALS: BP 111/61
[2017-07-24] MEDS ORDERED: CIPROFLOXACIN500 M1 PO (13:34)
[2017-07-24] MEDS ORDERED: DOXYCYCLINE HY100 M3 PO (13:34)
[2017-07-24] MEDS ORDERED: POLYETHYLENE GL17 GM PO (13:35)
[2017-07-24] MEDS ORDERED: FUROSEMIDE40 MG PO (13:36)
[2017-07-24] MEDS ORDERED: K-DUR20 MEQ PO (13:37)
[2017-07-24] MEDS ORDERED: PROAIR RESPICL90 MCG IH (13:42)
[2017-07-24] MEDS ORDERED: TRAMADOL HCL50 MG PO (13:49)
== END 2017-07-24 14:49 | disposition home health service (06) | DRG 280 ==
LOC: EME 17:44 → 4EAST 18:54 → EDOF 18:54 → 4WEST 18:54 → ENRESERV 19:01 → 4WEST 20:11 → ENRESERV 07-18 16:41 → 4EAST 07-18 19:59 → ENRESERV 07-22 07:28 → CANRESERV 07-22 07:48 → 4EAST 07-24 14:49
PROVIDERS: Emergency Medicine; Hospitalist; Internal Medicine; Internal Medicine Critical Care Medicine; Obstetrics & Gynecology; Specialist
PROC: 0BH17EZ Insertion of Endotracheal Airway into Trachea, Via Natural or Artificial Opening (ICD-10-PCS; principal; 2017-07-16)
PROC: 5A2204Z Restoration of Cardiac Rhythm, Single (ICD-10-PCS; principal; 2017-07-16)
PROC: 5A1945Z Respiratory Ventilation, 24-96 Consecutive Hours (ICD-10-PCS; principal; 2017-07-16)
DX: I21.4 Non-ST elevation (NSTEMI) myocardial infarction (principal); J96.01 Acute respiratory failure with hypoxia; J18.9 Pneumonia, unspecified organism; J44.0 Chronic obstructive pulmonary disease with (acute) lower respiratory infection; J44.1 Chronic obstructive pulmonary disease with (acute) exacerbation; I11.0 Hypertensive heart disease with heart failure; I50.23 Acute on chronic systolic (congestive) heart failure; I48.0 Paroxysmal atrial fibrillation; I25.5 Ischemic cardiomyopathy; I42.0 Dilated cardiomyopathy; E11.9 Type 2 diabetes mellitus without complications; I25.10 Atherosclerotic heart disease of native coronary artery without angina pectoris; G89.29 Other chronic pain; M25.559 Pain in unspecified hip; M79.605 Pain in left leg; K21.9 Gastro-esophageal reflux disease without esophagitis; E78.5 Hyperlipidemia, unspecified; E66.9 Obesity, unspecified; Z68.41 Body mass index [BMI] 40.0-44.9, adult; G43.909 Migraine, unspecified, not intractable, without status migrainosus; R00.0 Tachycardia, unspecified; I25.2 Old myocardial infarction; F41.9 Anxiety disorder, unspecified; F32.9 Major depressive disorder, single episode, unspecified; F17.210 Nicotine dependence, cigarettes, uncomplicated; Z79.82 Long term (current) use of aspirin; Z79.01 Long term (current) use of anticoagulants; Z82.49 Family history of ischemic heart disease and other diseases of the circulatory system; Z86.73 Personal history of transient ischemic attack (TIA), and cerebral infarction without residual deficits; Z95.1 Presence of aortocoronary bypass graft; Z95.5 Presence of coronary angioplasty implant and graft; Z95.810 Presence of automatic (implantable) cardiac defibrillator
CPT/HCPCS: 36600; 70450; 71045; 72131; 74022; 80048; 80048 91; 80053; 80202; 81003; 82803; 83605; 83735; 83880; 84100; 84484; 85025; 85027; 85610; 85730; 87040; 87070; 87205; 87641; 93005; 94002; 94003; 94640; 94640 76; 94760; 94799; 99202; 99281; 99285; C1753; J0330; J0780; J1100; J1885; J2250; J2405; J2543; J2704; J3010; J3370; J7030; J7050; S0028